=== PATIENT | female | born 1935 | race Two or more races ===

== ENCOUNTER 2018-05-14 13:20 | Outpatient (CLI) | payer OTHER ==
[~2018-05-14 13:20] MED LIST: AMBIEN10 MG PO; NORVASC2.5 MG PO; SIMBALTA; SYNTHROID50 MCG PO
== END 2018-05-14 13:45 | disposition home or self-care (01) ==
LOC: NUCLEAR 13:20
DX: G30.0 Alzheimer's disease with early onset (principal)
CPT/HCPCS: 78607; A9557

== ENCOUNTER 2018-06-15 14:16 | Outpatient (CLI) | payer OTHER | END 2018-06-15 16:26 | disposition home or self-care (01) | LOC: TOM 14:16 | DX: I26.99 Other pulmonary embolism without acute cor pulmonale (principal) ==

== ENCOUNTER 2019-02-03 16:14 | Emergency (ER) | payer OTHER ==
[~2019-02-03] VITALS: Ht 154.9 cm; Wt 97.5 kg
[2019-02-03] MEDS ORDERED: LORAZEPAM0.5 MG (16:50)
[2019-02-03] MEDS ORDERED: RISPERDAL1 MG (16:51)
[2019-02-03] MEDS ORDERED: ESCITALOPRAM OX10 MG (16:52)
[2019-02-03] MEDS ORDERED: DONEPEZIL HCL10 MG (16:52)
[2019-02-03] MEDS ORDERED: WELLBUTRIN SR200 MG (16:53)
[2019-02-03] MEDS ORDERED: RANITIDINE HCL150 M1 (16:54)
[2019-02-03] MEDS ORDERED: FOCALIN5 MG (16:55)
[2019-02-03] MEDS ORDERED: NORVASC2.5 M1 (16:55)
[2019-02-03] MEDS ORDERED: NAMENDA XR28 MG (16:56)
[2019-02-03] MEDS ORDERED: METFORMIN HCL500 MG (16:57)
[2019-02-03] MEDS ORDERED: ELIQUIS5 MG (16:57)
[2019-02-03] MEDS ORDERED: TOPROL XL25 MG (16:58)
== END 2019-02-03 22:00 | disposition home or self-care (01) ==
LOC: ER 16:14
DX: S00.03XA Contusion of scalp, initial encounter (principal); S70.02XA Contusion of left hip, initial encounter; S70.01XA Contusion of right hip, initial encounter; S30.0XXA Contusion of lower back and pelvis, initial encounter; S19.89XA Other specified injuries of other specified part of neck, initial encounter; I48.91 Unspecified atrial fibrillation; G30.8 Other Alzheimer's disease; F02.80 Dementia in other diseases classified elsewhere, unspecified severity, without behavioral disturbance, psychotic disturbance, mood disturbance, and anxiety; W18.09XA Striking against other object with subsequent fall, initial encounter; Y93.89 Activity, other specified; Y92.018 Other place in single-family (private) house as the place of occurrence of the external cause; Y99.8 Other external cause status

== ENCOUNTER 2019-07-01 14:47 | Emergency (ER) | payer OTHER ==
[~2019-07-01] VITALS: Ht 157.5 cm; Wt 74.8 kg
[~2019-07-01 14:47] MED LIST changes: +DONEPEZIL HCL10 MG; +ELIQUIS5 MG; +ESCITALOPRAM OX10 MG; +FOCALIN5 MG; +LORAZEPAM0.5 MG; +METFORMIN HCL500 MG; +NAMENDA XR28 MG; +NORVASC2.5 M1; +RANITIDINE HCL150 M1; +RISPERDAL1 MG; +TOPROL XL25 MG; +WELLBUTRIN SR200 MG
== END 2019-07-01 21:53 | disposition home or self-care (01) ==
LOC: ER 14:47
DX: N39.0 Urinary tract infection, site not specified (principal); B96.29 Other Escherichia coli [E. coli] as the cause of diseases classified elsewhere; R31.29 Other microscopic hematuria; R06.02 Shortness of breath; G30.8 Other Alzheimer's disease; F02.80 Dementia in other diseases classified elsewhere, unspecified severity, without behavioral disturbance, psychotic disturbance, mood disturbance, and anxiety